=== PATIENT | female | born 1940 | race Caucasian/White ===

== ENCOUNTER → 2023-06-17 11:27 | Outpatient (REF) | payer MEDICARE, SELFPAY ==
[2023-06-17 11:50] LABS: Hematocrit 40.7 % (37.0-47.0); Hemoglobin 14.4 g/dL (12.0-16.0); Mean Corp Hgb Conc. 35.4 g/dL (33.0-37.0); Mean Corpuscular Volume 93.1 fL (81.0-99.0); Mean Platelet Volume 10.8 fL (7.4-10.4); Platelet Count 190 10^3/uL (130-400); Red Blood Cell Count 4.37 10^6/uL (4.20-5.40); Red Cell Dist. Width 12.8 % (11.5-14.5); White Blood Cell Count 4.5 10^3/uL (4.8-10.8)
[2023-06-17 12:10] LABS: ALT (SGPT) 24 U/L (0-35); AST (SGOT) 28 U/L (14-36); Albumin 3.8 g/dl (3.5-5.0); Alkaline Phosphatase 96 U/L (38-126); Blood Urea Nitrogen 20 mg/dl (7-17); Carbon Dioxide 30 mmol/L (22-30); Chloride 105 mmol/L (98-107); Glucose 102 mg/dl (70-99); HDL Cholesterol 70 mg/dl; LDL Cholesterol, Calculated 39 mg/dl; Potassium 4.1 mmol/L (3.5-5.1); Sodium 139 mmol/L (135-145); Total Bilirubin 2.4 mg/dl (0.2-1.3); Total Cholesterol 121 mg/dl (50-199); Total Protein 6.4 g/dl (6.3-8.2); Triglyceride 64 mg/dl (10-149); Very Low Density Lipoprotein 12 mg/dl (0-30); eGFR > 60.00
[2023-06-17 12:19] LABS: NT-proBNP 73.2 pg/ml
[2023-06-17 12:23] LABS: Glycohemoglobin (HgbA1c) 6.1 % (4.0-5.6)
[2023-06-17 12:37] LABS: TSH Reflex To Free T4 2.95 uIU/ml (0.47-4.68)
== END ==
LOC: OLABPV 11:27
PROVIDERS: ATTENDING PHYSICIAN Family Medicine
DX: E80.6 Other disorders of bilirubin metabolism (principal); R73.03 Prediabetes; I10 Essential (primary) hypertension; R60.0 Localized edema
CPT/HCPCS: 36415; 80053; 80061; 83036; 83880; 84443; 85027

== ENCOUNTER → 2023-09-07 07:48 | Outpatient (REF) | payer MEDICARE, SELFPAY | LOC: RAD 07:48 | PROVIDERS: ATTENDING PHYSICIAN Family Medicine | DX: Z78.0 Asymptomatic menopausal state (principal); Z13.820 Encounter for screening for osteoporosis | CPT/HCPCS: 77080 ==

== ENCOUNTER → 2023-09-21 13:53 | Outpatient (REF) | payer MEDICARE, SELFPAY ==
[2023-09-21 15:35] LABS: ALT (SGPT) 23 U/L (0-35); AST (SGOT) 29 U/L (14-36); Albumin 4.2 g/dl (3.5-5.0); Alkaline Phosphatase 96 U/L (38-126); Blood Urea Nitrogen 22 mg/dl (7-17); Calcium 9.6 mg/dl (8.4-10.2); Carbon Dioxide 30 mmol/L (22-30); Chloride 105 mmol/L (98-107); Glucose 97 mg/dl (70-99); HDL Cholesterol 72 mg/dl; LDL Cholesterol, Calculated 64 mg/dl; Potassium 4.1 mmol/L (3.5-5.1); Sodium 140 mmol/L (135-145); Total Bilirubin 2.7 mg/dl (0.2-1.3); Total Cholesterol 147 mg/dl (50-199); Total Protein 6.9 g/dl (6.3-8.2); Triglyceride 57 mg/dl (10-149); Very Low Density Lipoprotein 11 mg/dl (0-30); eGFR > 60.00
[2023-09-22 08:41] LABS: Glycohemoglobin (HgbA1c) 5.8 % (4.0-5.6)
== END ==
LOC: OLABPV 13:53
PROVIDERS: ATTENDING PHYSICIAN Family Medicine
DX: R73.03 Prediabetes (principal); E78.00 Pure hypercholesterolemia, unspecified
CPT/HCPCS: 36415; 80053; 80061; 83036

== ENCOUNTER → 2024-05-09 09:56 | Outpatient (REF) | payer MEDICARE, SELFPAY ==
[2024-05-09 10:58] LABS: % Basophils 0.6 % (0-2); % Eosinophils 4.8 % (0-6); % Immature Granulocytes 0.2 % (0-0.5); % Lymphocytes 32.9 % (20.5-51.1); % Monocytes 10.2 % (1.7-9.3); % Neutrophils 51.3 % (42.2-75.2); Absolute Eosinophils 0.2 10^3/uL (0-0.7); Absolute Lymphocytes 1.6 10^3/uL (1.2-3.4); Absolute Monocytes 0.5 10^3/uL (0.1-0.6); Absolute Neutrophils 2.5 10^3/uL (1.4-6.5); Hematocrit 37.5 % (37.0-47.0); Hemoglobin 12.7 g/dL (12.0-16.0); Mean Corp Hgb Conc. 33.9 g/dL (33.0-37.0); Mean Corpuscular Hgb 32.7 pg (27.0-31.0); Mean Corpuscular Volume 96.6 fL (81.0-99.0); Mean Platelet Volume 10.9 fL (7.4-10.4); Nucleated Red Blood Cells % 0 %; Platelet Count 155 10^3/uL (130-400); Red Blood Cell Count 3.88 10^6/uL (4.20-5.40); Red Cell Dist. Width 13.2 % (11.5-14.5); White Blood Cell Count 4.8 10^3/uL (4.8-10.8)
[2024-05-09 11:05] LABS: ALT (SGPT) 24 U/L (0-35); AST (SGOT) 28 U/L (14-36); Albumin 3.3 g/dl (3.5-5.0); Alkaline Phosphatase 91 U/L (38-126); Blood Urea Nitrogen 22 mg/dl (7-17); Calcium 8.8 mg/dl (8.4-10.2); Carbon Dioxide 30 mmol/L (22-30); Chloride 104 mmol/L (98-107); Glucose 106 mg/dl (70-99); HDL Cholesterol 60 mg/dl; LDL Cholesterol, Calculated 44 mg/dl; Potassium 4.2 mmol/L (3.5-5.1); Sodium 136 mmol/L (135-145); Total Bilirubin 1.7 mg/dl (0.2-1.3); Total Cholesterol 114 mg/dl (50-199); Total Protein 5.5 g/dl (6.3-8.2); Triglyceride 51 mg/dl (10-149); Very Low Density Lipoprotein 10 mg/dl (0-30); eGFR > 60.00
[2024-05-09 11:41] LABS: Glycohemoglobin (HgbA1c) 5.8 % (4.0-5.6)
== END ==
LOC: OLABPV 09:56
PROVIDERS: ATTENDING PHYSICIAN Family Medicine
DX: R73.03 Prediabetes (principal); E78.00 Pure hypercholesterolemia, unspecified; R53.83 Other fatigue
CPT/HCPCS: 36415; 80053; 80061; 83036; 85025

== ENCOUNTER → 2024-06-25 10:35 | Outpatient (REF) | payer MEDICARE, SELFPAY ==
--- NOTE | 2024-06-25 12:23 | CARDSERVLU ---
Echocardiogram with Lumason completed after protocol screening completed. Allergies verified.
Patent IV site: Rt AC
IV site flushed with 0.9% NaCl pre and post administration.
Diluted bolus method utilized to enhance visualization of ventricular moore.
Total volume given: __3.0mL
Patient tolerated all procedures well without complications.
#22 rajeev started left AC. Lumason given. INT d/c'd. dsg applied. pressure held. No bleeding noted.
== END ==
LOC: RCS 10:35
PROVIDERS: ATTENDING PHYSICIAN Internal Medicine Cardiovascular Disease; FAMILY PHYSICIAN Family Medicine
DX: R60.0 Localized edema (principal); I35.8 Other nonrheumatic aortic valve disorders
CPT/HCPCS: 93306; Q9950

== ENCOUNTER → 2024-12-05 10:22 | Outpatient (REF) | payer MEDICARE, SELFPAY ==
[2024-12-05 12:28] LABS: Hematocrit 41.6 % (37.0-47.0); Hemoglobin 14.1 g/dL (12.0-16.0); Mean Corp Hgb Conc. 33.9 g/dL (33.0-37.0); Mean Corpuscular Volume 95.2 fL (81.0-99.0); Nucleated Red Blood Cells % 0 %; Platelet Count 207 10^3/uL (130-400); Red Cell Dist. Width 13.2 % (11.5-14.5)
[2024-12-05 12:33] LABS: ALT (SGPT) 23 U/L (0-35); AST (SGOT) 24 U/L (14-36); Albumin 4.1 g/dl (3.5-5.0); Alkaline Phosphatase 98 U/L (38-126); Blood Urea Nitrogen 21 mg/dl (7-17); Calcium 9.4 mg/dl (8.4-10.2); Carbon Dioxide 30 mmol/L (22-30); Chloride 107 mmol/L (98-107); Glucose 98 mg/dl (70-99); HDL Cholesterol 72 mg/dl; LDL Cholesterol, Calculated 57 mg/dl; Potassium 4.1 mmol/L (3.5-5.1); Sodium 141 mmol/L (135-145); Total Protein 6.5 g/dl (6.3-8.2); Very Low Density Lipoprotein 12 mg/dl (0-30); eGFR > 60.00
[2024-12-05 13:38] LABS: Glycohemoglobin (HgbA1c) 6.1 % (4.0-5.6)
== END ==
LOC: OLABPV 10:22
PROVIDERS: ATTENDING PHYSICIAN Family Medicine
DX: R73.03 Prediabetes (principal); M19.019 Primary osteoarthritis, unspecified shoulder; I10 Essential (primary) hypertension; E80.6 Other disorders of bilirubin metabolism; R73.9 Hyperglycemia, unspecified; R94.5 Abnormal results of liver function studies; Z13.29 Encounter for screening for other suspected endocrine disorder; R79.89 Other specified abnormal findings of blood chemistry
CPT/HCPCS: 36415; 80053; 80061; 83036; 84443; 85025

== ENCOUNTER 2025-03-17 08:24 | Emergency (ER) | payer MEDICARE, SELFPAY ==
[2025-03-17 08:32] VITALS: BP 168/93
[2025-03-17 09:15] LABS: Hematocrit 38.5 % (37.0-47.0); Hemoglobin 13.7 g/dL (12.0-16.0); Mean Corp Hgb Conc. 35.6 g/dL (33.0-37.0); Mean Corpuscular Volume 92.3 fL (81.0-99.0); Nucleated Red Blood Cells % 0 %; Platelet Count 182 10^3/uL (130-400); Red Cell Dist. Width 12.7 % (11.5-14.5)
[2025-03-17 09:23] LABS: Albumin 3.8 g/dl (3.5-5.0); Blood Urea Nitrogen 23 mg/dl (7-17); Carbon Dioxide 27 mmol/L (22-30); Total Protein 6.5 g/dl (6.3-8.2); eGFR > 60.00
[2025-03-17 09:38] LABS: ALT (SGPT) 21 U/L (0-35); AST (SGOT) 22 U/L (14-36); Alkaline Phosphatase 103 U/L (38-126); Calcium 9.2 mg/dl (8.4-10.2); Chloride 105 mmol/L (98-107); Glucose 111 mg/dl (70-99); Potassium 3.4 mmol/L (3.5-5.1); Sodium 138 mmol/L (135-145)
[2025-03-17 11:03] VITALS: BMI 33.4
[2025-03-17 11:05] VITALS: BP 188/98
--- NOTE | 2025-03-17 11:33 | ED.GENMED ---
History of Present Illness
General
Chief Complaint: Fatigue
Time Seen by Provider: 03/17/25 11:08
History of Present Illness
History of Present Illness:
84-year-old female with history of hypertension, COPD, reflux presenting to the emergency department for multiple complaints. She notes for the past week she has been feeling increased fatigue, some lightheadedness and tiredness. She also notes a
mild cough with some shortness of breath. She also notes some head pressure. She went to urgent care 2 days ago, was told to come to the hospital, however did not want to do so so she made an appoint with her primary care doctor on Tuesday. She
got concerned about her cough and shortness of breath which prompted her to come today. Denies fever. Denies known sick contacts. Denies any abdominal pain. Denies visual changes. Denies weakness or numbness. Denies additional acute medical
complaints
Phy Exam
Physical Exam
Physical Exam:
General: Well-appearing, no clinical signs of dehydration, nontoxic and in no acute distress
HEENT: protecting airway, pupils equal and reactive, extraocular movements intact
Neck: appears supple
CV: Normal heart rate, regular rhythm
Resp: No accessory muscle use, no increased work of breathing, lungs clear to auscultation bilaterally
Abd: Soft and non-distended, no tenderness to palpation
Extremities: No deformities, no swelling, no erythema
Neuro: alert, no focal neurologic deficit
: deferred
Rectal: deferred
Psych: Normal affect
Skin: Intact
Course
Orders/Labs/Results
Orders:
Orders
03/17/25 08:37
Electrocardiogram (*1) Urgent
Reason for Study: Fatigue / Weakness
EKG- Treatment ONCE
03/17/25 08:51
CMP [Comprehensive Metabolic Panel] Urgent
Complete Blood Count/With Diff Urgent
NT-proBNP Urgent
03/17/25 11:23
CT Head W/o Iv Contrast Urgent
Comment:
Reason For Exam: head pressure
0.9% Sodium Chloride 1000 ml [Nss] 1,000 ml IV BOLUS
CR Chest - 2 Views Urgent
Comment:
Reason For Exam: cough, sob
03/17/25 12:30
Urinalysis Reflex To Culture Urgent
Date Specimen was Collected: 03/17/25
Time Specimen was Collected: 12:27
Urine Microscopic Reflex Cult Urgent
Abnormal Lab Results
03/17/25 03/17/25
08:51 12:30
WBC 4.4 L 10^3/uL
(4.8-10.8)
RBC 4.17 L 10^6/uL
(4.20-5.40)
MCH 32.9 H pg
(27.0-31.0)
Monocytes % 10.0 H %
(1.7-9.3)
Potassium 3.4 L mmol/L
(3.5-5.1)
BUN 23 H mg/dl
(7-17)
Glucose 111 H mg/dl
(70-99)
Total Bilirubin 1.9 H mg/dl
(0.2-1.3)
Ur Occult Blood Reflex 1+ A
(Negative)
Urine RBC 3-6 A /HPF
(0-2)
Urine Bacteria (Reflex) Few A
(Negative)
Urine Albumin (Reflex) 1+ A
(Neg - Trace)
03/17/25 08:51
03/17/25 08:51
Vital Signs
Initial and Last Documented VS:
Initial Vital Signs
Temp Pulse Resp BP Pulse Ox
97.6 F 83 16 168/93 96
03/17/25 08:32 03/17/25 08:32 03/17/25 08:32 03/17/25 08:32 03/17/25 08:32
Last Documented Vital Signs
Temp Pulse Resp BP Pulse Ox
97.6 F 83 16 173/80 95
03/17/25 08:32 03/17/25 08:32 03/17/25 08:32 03/17/25 13:06 03/17/25 13:06
MDM/Problems Addressed
MDM/Problems Addressed:
84-year-old female with history of hypertension, anxiety, COPD presenting for lightheadedness, cough, shortness of breath, head pressure. Vital signs on arrival significant for high blood pressure.
On exam, patient is resting comfortably, no acute distress. She is afebrile, nontoxic. Unremarkable cardiac, pulmonary, abdominal, neurologic exam. Given myriad of symptoms, suspect possible viral syndrome. Does note some head pressure, so in
the setting of high blood pressure, will screen with CT brain, however at this time again reassuring neurologic exam. EKG obtained, nonischemic, no arrhythmia. No respiratory distress, lungs clear to auscultation. Lower suspicion for pneumonia.
Will screen with chest x-ray imaging. Labs obtained prior to my assessment, no leukocytosis, normal electrolyte panel. Will add some fluids for possible mild dehydration. Will also check urinalysis in the setting of possible UTI. Will continue
to closely monitor
13:20 - CT brain is negative and chest x-ray without acute cardiopulmonary disease. Urine without sign of infection. On reassessment patient remained stable. Continue to suspect viral type syndrome. Feel stable for discharge with continued
outpatient supportive therapy. Return precautions discussed and patient verbalized understanding.
*Pulse Oximetry
SaO2: 96
Oxygen Mode of Delivery: Room air
Patient hypoxic: no
*EKG
Interpreted by ED Provider?: Yes
EKG Intrepretation Date: 03/17/25
EKG Intrepretation Time: 11:37
Interpretation: normal
Heart Rate: 77
Rate: normal
Rhythm: sinus
[place]: normal axis
Interval: normal interval
QRS Pattern: normal QRS
Ischemia: no ischemia
*Critical Care Note
Total Time (30-74mins, 75-104mins- exclusive of procedures): Not Applicable
ED Attending Note
-
Portions of this chart may have been created with voice recognition software.� Occasional wrong word or��sound alike� substitutions may have occurred due to the inherent limitations of voice recognition software.
Discharge Plan
Departure
Patient Disposition: Home (Routine Discharge)
Date of Disposition: 03/17/25
Time of Disposition: 13:23
Patient with high blood pressure during this ER visit?: Yes
Condition: Good
Discharge Problem:
Fatigue, Hypertension
Instructions: Fatigue (DC), BLOOD PRESSURE
Prescriptions:
No Action
ezetimibe 10 MG tablet
10 mg PO QPM
pyridoxine (vitamin B6) [Vitamin B-6] 100 MG tablet
100 mg PO DAILY
mirabegron [Myrbetriq] 50 MG tablet extended release 24 hr
50 mg PO DAILY
sumatriptan succinate 50 MG tablet
50 mg PO PRN PRN (Reason: migraine)
esomeprazole magnesium [Nexium 24HR] 22.3 MG capsule,delayed release(DR/EC)
44 mg PO DAILY
losartan 50 MG tablet
25 mg PO DAILY
docosahexaenoic acid-epa 1 CAP capsule
1 cap PO QPM
Patient Comments:
1240 mg
peg 400-propylene glycol (PF) [Systane (PF)] 1 EACH dropperette
1 drp BOTH EYES PRN PRN (Reason: Dry eyes) Qty: 0
Lactobac 2-Bifido 1-S. therm [VSL#3] 1 EACH capsule
2 cap PO QPM
Vitamin B Complex
1 ml sublingual QPM
atorvastatin 10 MG tablet
10 mg PO QPM
escitalopram oxalate 5 MG tablet
5 mg PO DAILY
furosemide 20 MG tablet
20 mg PO SUTUTHSA
conjugated estrogens [Premarin] 1 APPLIC cream
1 applic vaginal SUWE
acetaminophen [Tylenol Extra Strength] 500 MG tablet
1,000 mg PO PRN PRN (Reason: pain)
ketoconazole 1 APPLIC cream
15 gm topical PRN PRN (Reason: rash)
wknmqkvf-ibq-AS-lycopen-lutein [Centrum Silver] 1 EACH tablet
1 ea PO DAILY
Lactobac 2-Bifido 1-S. therm [VSL#3] 1 EACH capsule
2 cap PO QPM
hydrocodone-acetaminophen 1 TABLET tablet
1 tab PO Q4HPRN PRN (Reason: moderate pain) Qty: 15 0RF
Referrals:
Jerri Galvan MD [Family Provider, Family Practice]
Activity Restrictions/Additional Instructions:
You were seen in the emergency department for generalized fatigue and a cough
You were found to have reassuring laboratory analysis, EKG, CT imaging of your brain as well as your chest. We suspect that you have a viral illness. Please continue to drink fluids and rest.
Please follow-up closely with your primary care physician tomorrow as scheduled.
Return to the emergency department for any worsening of your symptoms, or any development of chest pain, difficulty breathing, abdominal pain with persistent vomiting and inability to tolerate food or liquid by mouth (concern for dehydration),
weakness, headache or confusion, fever greater than 100.4, or any additional symptoms that are concerning to you.
Thank you for choosing [facility].
Interventions
Interventions:
*General Assessment Last Done: 03/17/25 11:03
*Neglect/Abuse Screening Last Done: 03/17/25 08:32
*ED COVID-19 Vaccine History Last Done: 03/17/25 11:03
*ED Influenza Vaccine History Last Done: 03/17/25 11:03
[facility] Risk Assessment Tool Last Done: 03/17/25 11:03
*Risk Screen - Suicide (C-SSRS) Last Done: 03/17/25 08:32
*Nursing Disposition Last Done: 03/17/25 13:39
Discharge Date and Time
Discharge Date/Time: 03/17/25 13:42
Print Language: VIET[place]ESE
[2025-03-17] MEDS: NSS 1000 IV (11:37)
[2025-03-17 12:35] VITALS: BP 160/77
[2025-03-17 12:36] LABS: Urine Character Clear (Clear)
[2025-03-17 12:44] LABS: Urine Squamous Cell >30 /LPF (Few)
[2025-03-17 13:06] VITALS: BP 173/80
== END 2025-03-17 13:42 | disposition home or self-care (01) ==
LOC: EMR 08:24
PROVIDERS: Emergency Medicine; EMERGENCY PHYSICIAN Student in an Organized Health Care Education/Training Program; FAMILY PHYSICIAN Family Medicine
DX: I10 Essential (primary) hypertension (principal); J44.9 Chronic obstructive pulmonary disease, unspecified; K21.9 Gastro-esophageal reflux disease without esophagitis
CPT/HCPCS: 99284; 96360; 70450; 71046; 80053; 81003; 81015; 83880; 85025; 93005